=== PATIENT | female | born 1970 | race Two or more races ===

== ENCOUNTER 2018-05-20 03:39 | Emergency (ER) | payer BC ==
--- NOTE | 2018-05-20 06:13 | ER Document Report ---
ED General - General Chief Complaint: Leg Pain Stated Complaint: LEG/KNEE PAIN Time Seen by Provider: 05/20/18 06:12 Notes: 47-year-old female patient emergency department chief complaint of not feeling well. Patient has a history of lupus. States that her right leg is swollen and painful. Had a low-grade fever. Was not feeling well yesterday. Fever and chills and sweats. No significant weakness. Has a mild headache right now but not significant. Also complaining of some left lower chest wall pain and shortness of breath. Followed by credit operations processor. Currently does not have a primary care doctor. Denies any abdominal pain at this time. [employer] dictation system was used in the transcribing of this medical document. There may be contextual errors in the deliverer merchandise which are not actual representations of the patient's history of present illness, physical exam or medical treatment and decision making plans. TRAVEL OUTSIDE OF THE [place] IN LAST 30 DAYS: No - HPI Onset: Yesterday - Related Data Allergies/Adverse Reactions: No Known Allergies Allergy (Unverified 06/21/13 14:39) Past Medical History - General Information source: Patient, [facility] Records - Social History Smoking Status: Never Smoker Smoking Education Provided: No Drug Abuse: None Lives with: Family Family History: Thyroid Disfunction. denies: CAD, Hypertension Patient has suicidal ideation: No Patient has homicidal ideation: No - Past Medical History Cardiac Medical History: Denies: Hx Coronary Artery Disease, Hx Hypertension Endocrine Medical History: Denies: Hx Hyperthyroidism, Hx Hypothyroidism Renal/ Medical History: Denies: Hx Peritoneal Dialysis Musculoskeltal Medical History: Reports Hx Arthritis Past Surgical History: Reports: Hx Gynecologic Surgery, Hx Tonsillectomy - Immunizations Hx Diphtheria, Pertussis, Tetanus Vaccination: No Review of Systems - Review of Systems Constitutional: Fever, Malaise, Weakness EENT: No symptoms reported Cardiovascular: Chest pain, Palpitations, Heart racing Respiratory: denies: Cough, Hurts to breathe, Short of breath, Wheezing Gastrointestinal: denies: Abdominal pain, Diarrhea, Nausea, Vomiting Genitourinary: No symptoms reported Female Genitourinary: No symptoms reported Musculoskeletal: See HPI, Joint swelling, Leg swelling, Ankle swelling Skin: No symptoms reported Hematologic/Lymphatic: No symptoms reported Neurological/Psychological: denies: Confusion, Weakness, Numbness Physical Exam - Vital signs Vitals: Temp Pulse Resp BP Pulse Ox 99.0 F 108 H 16 101/41 L 97 05/20/18 03:45 05/20/18 03:45 05/20/18 03:45 05/20/18 03:45 05/20/18 03:45 Interpretation: Tachycardic - General General appearance: Appears well, Alert - HEENT Head: Normocephalic, Atraumatic Eyes: Normal Pupils: PERRL - Respiratory Respiratory status: No respiratory distress Chest status: Nontender Breath sounds: Normal Chest palpation: Normal - Cardiovascular Rhythm: Tachycardia Heart sounds: Normal auscultation Murmur: No Notes: There is some mild tenderness palpation when pushing on the left lower lateral and anterior chest wall. - Abdominal Inspection: Normal Distension: No distension Bowel sounds: Normal Tenderness: Nontender Organomegaly: No organomegaly - Back Back: Normal, Nontender - Extremities General upper extremity: Normal inspection, Nontender, Normal color, Normal ROM , Normal temperature General lower extremity: Other - The right lower extremity is significantly swollen as compared to left. There is some pitting edema noted to the foot and ankle. No: Alma's sign - Neurological Neuro grossly intact: Yes Cognition: Normal Orientation: AAOx4 [place] Coma Scale Eye Opening: Spontaneous Jessica Coma Scale Verbal: Oriented [place] Coma Scale Motor: Obeys Commands Jessica Coma Scale Total: 15 Speech: Normal Motor strength normal: LUE, RUE, LLE, RLE Sensory: Normal - Psychological Associated symptoms: Normal affect, Normal mood - Skin Skin Temperature: Warm Skin Moisture: Dry Skin Color: Normal Course - Re-evaluation Re-evalutation: 05/20/18 09:23 Patient's blood pressure now dropping at 86/58, white blood cell count 25,000. Lactate over 3. Adding second liter normal saline. 2 g Rocephin IV ordered. Could potentially be a source in the chest. Will add CT scan of the chest. CT head was virtually unremarkable but radiologist request MRI if concern. Obviously concern at this time for sepsis. Sepsis protocols begun. Medicine consulted for admit. Will have no clear definitive source for the sepsis. 05/20/18 09:31 At [address] time [address] chest abdomen pelvis to look for any potential sources including spinal abscess to abdominal abscess or other pathology. Consulted hospitalist at this time. Waiting for consult and admit. 05/20/18 11:29 She initially consulted for admission here. The CT scan chest abdomen pelvis results showed massive lymphadenopathy in the retroperitoneal and pelvic origins. Consulted with Dr. Negron with oncology who recommends transfer to tertiary care center where she get a rapid diagnosis and possible rapid biopsy. Apparently this is unlikely to happen here. Will consult with the patient about where she would like to go and try to transfer her. Continue IV fluids and antibiotics. Have consulted with the hospitalist as well and he agrees with this plan. 05/20/18 12:58 DR. Waller has accepted at [facility] 05/20/18 16:15 Patient was evaluated shortly prior to transfer. Patient was stable for transfer. Reconsulted with transfer center wall transfer team was present to ensure that I agreed with the transfer and the stability of transfer.. - Vital Signs Vital signs: Temp Pulse Resp BP Pulse Ox 101.1 F H 108 H 30 H 94/63 L 99 05/20/18 15:01 05/20/18 03:45 05/20/18 15:01 05/20/18 15:01 05/20/18 15:01 - Laboratory Result Diagrams: 05/20/18 06:00 05/20/18 06:00 Laboratory results interpreted by me: 05/20/18 05/20/18 05/20/18 06:00 06:00 06:00 WBC 25.8 H RBC 5.49 H Hgb 11.2 L Hct 35.2 L MCV 64 L MCH 20.3 L MCHC 31.7 L RDW 18.2 H Seg Neuts % (Manual) 88 H Band Neutrophils % 8 H Lymphocytes % (Manual) 1 L Monocytes % (Manual) 2 L Abs Neuts (Manual) 24.8 H Abs Lymphs (Manual) 0.3 L PT 15.5 H Potassium 3.3 L Est GFR (Non-Af Amer) 56 L Glucose 139 H Lactic Acid Direct Bilirubin 0.6 H Urine Protein Urine Bilirubin Urine Urobilinogen Ur Leukocyte Esterase 05/20/18 05/20/18 07:35 08:05 WBC RBC Hgb Hct MCV MCH MCHC RDW Seg Neuts % (Manual) Band Neutrophils % Lymphocytes % (Manual) Monocytes % (Manual) Abs Neuts (Manual) Abs Lymphs (Manual) PT Potassium Est GFR (Non-Af Amer) Glucose Lactic Acid 3.1 H Direct Bilirubin Urine Protein 100 H Urine Bilirubin SMALL H Urine Urobilinogen 2.0 H Ur Leukocyte Esterase SMALL H Critical Care Note - Critical Care Note Total time excluding time spent on procedures (mins): 90 Comments: Sepsis, consultation with specialists, coordination of transfer of care, hypotension, tachycardia, infection oncological emergency Discharge - Discharge Clinical Impression: Right leg swelling, Acute lymphadenitis Sepsis Qualifiers: Sepsis type: sepsis due to unspecified organism Qualified Code(s): A41.9 - Sepsis, unspecified organism Condition: Critical Disposition: [facility]
[2018-05-20 06:28] LABS: HEMATOCRIT 35.2 % (36.0-47.0); HEMOGLOBIN 11.2 g/dL (12.0-15.5); MEAN CORPUSCULAR HEMOGLOBIN 20.3 pg (27.0-33.4); MEAN CORPUSCULAR HGB CONC 31.7 g/dL (32.0-36.0); PLATELET COUNT 311 10^3/uL (150-450); RED BLOOD COUNT 5.49 10^6/uL (3.72-5.28); RED CELL DISTRIBUTION WIDTH 18.2 % (11.5-14.0); WHITE BLOOD COUNT 25.8 10^3/uL (4.0-10.5)
[2018-05-20] MEDS ORDERED: KETOROLAC TROMETHAMINE INJ/PF 30 MG/1 ML SDV IV ONE (06:31)
[2018-05-20] MEDS ORDERED: NORMAL SALINE 1000 ML 1,000 ML IV ONE ×3 (06:31→14:24)
[2018-05-20 06:36] LABS: ALANINE AMINOTRANSFERASE 23 U/L (9-52); ALBUMIN 3.5 g/dL (3.5-5.0); ALKALINE PHOSPHATASE 86 U/L (38-126); ANION GAP 15 (5-19); ASPARTATE AMINO TRANSFERASE 19 U/L (14-36); BILIRUBIN,DIRECT 0.6 mg/dL (0.0-0.4); BILIRUBIN,TOTAL 1.1 mg/dL (0.2-1.3); BLOOD UREA NITROGEN 15 mg/dL (7-20); CALCIUM 9.2 mg/dL (8.4-10.2); CARBON DIOXIDE 22 mmol/L (22-30); CHLORIDE 104 mmol/L (98-107); GLUCOSE 139 mg/dL (75-110); POTASSIUM 3.3 mmol/L (3.6-5.0); TOTAL PROTEIN 6.8 g/dL (6.3-8.2)
[2018-05-20 07:04] LABS: ABSOLUTE LYMPHOCYTES# (MANUAL) 0.3 10^3/uL (0.5-4.7); ABSOLUTE MONOCYTES # (MANUAL) 0.5 10^3/uL (0.1-1.4); ABSOLUTE NEUTROPHILS# (MANUAL) 24.8 10^3/uL (1.7-8.2); BAND NEUTROPHILS % (MANUAL) 8 % (3-5); BASOPHILS % (MANUAL) 0 % (0-2); EOSINOPHILS % (MANUAL) 1 % (0-6); LYMPHOCYTES % (MANUAL) 1 % (13-45); MONOCYTES % (MANUAL) 2 % (3-13); SEGMENTED NEUTROPHILS % (MAN) 88 % (42-78); TOTAL CELLS COUNTED 100
--- NOTE | 2018-05-20 07:05 | RADIOLOGY REPORT (SQ) ---
EXAM DESCRIPTION: XR CHEST 1 VIEW COMPLETED DATE/TME: 05/20/2018 06:30 CLINICAL HISTORY: 47 years Female, chest pain and sob COMPARISON: None. NUMBER OF VIEWS/TECHNIQUE: 1/AP FINDINGS: Adequate lung volume, mild interstitial markings, normal cardiac silhouette, and intact bony thorax. IMPRESSION: Mild interstitial markings. Differential diagnosis includes pulmonary edema, atypical pneumonitis, and chronic interstitial lung disease.
[2018-05-20 07:06] LABS: ANISOCYTOSIS 2+; HYPOCHROMASIA 1+; OVALOCYTES 1+; PLATELET COMMENT ADEQUATE; TOXIC VACUOLATION PRESENT
[2018-05-20 07:07] LABS: MEAN CORPUSCULAR VOLUME 64 fl (80-97)
[2018-05-20 07:26] LABS: INTERNATIONAL RATION (INR) 1.17; PROTHROMBIN TIME 15.5 SEC (11.4-15.4)
[2018-05-20 07:27] LABS: PARTIAL THROMBOPLASTIN TIME 28.7 SEC (23.5-35.8)
[2018-05-20 07:55] LABS: APPEARANCE,URINE CLOUDY; BILIRUBIN,URINE SMALL (NEGATIVE); COLOR,URINE AMBER; GLUCOSE, URINE NEGATIVE (NEGATIVE); KETONES,URINE NEGATIVE (NEGATIVE); LEUKOCYTE ESTERASE,URINE SMALL (NEGATIVE); NITRITE,URINE NEGATIVE (NEGATIVE); PROTEIN,URINE 100 mg/dL (NEGATIVE); URINE SPECIFIC GRAVITY 1.029
--- NOTE | 2018-05-20 08:30 | RADIOLOGY REPORT (SQ) ---
EXAM DESCRIPTION: CT HEAD WITHOUT COMPLETED DATE/TIME: 05/20/2018 8:05 am REASON FOR STUDY: History of lupus with headache and right leg pain COMPARISON: 06/30/2011 TECHNIQUE: Axial images acquired through the brain without intravenous contrast. Images reviewed wi th bone, brain and subdural windows. Additional sagittal and coronal reconstructions were generated. Images stored on PACS. All CT scanners at this facility use dose modulation, iterative reconstruction, and/or weight based d osing when appropriate to reduce radiation dose to as low as reasonably achievable (ALARA). [facility]: Dose Right [facility]: CareDose [facility]: Dose Right [facility]: Teradose 4D [facility]: [employer] RADIATION DOSE: CT Rad equipment meets quality standard of care and radiation dose reduction techniq ues were employed. CTDIvol: 53.2 mGy. DLP: 1097 mGy-cm. mGy. LIMITATIONS: None. FINDINGS: VENTRICLES: Normal size and contour. CEREBRUM: No masses. No hemorrhage. No midline shift. No evidence for acute infarction. Normal gra y/white matter differentiation. No areas of low density in the white matter. CEREBELLUM: No masses. No hemorrhage. No alteration of density. No evidence for acute infarction. EXTRAAXIAL SPACES: No fluid collections. No masses. ORBITS AND GLOBE: No intra- or extraconal masses. Normal contour of globe without masses. CALVARIUM: No fracture. PARANASAL SINUSES: No fluid or mucosal thickening. SOFT TISSUES: No mass or hematoma. OTHER: No other significant finding. IMPRESSION: NORMAL BRAIN CT WITHOUT CONTRAST. EVIDENCE OF ACUTE STROKE: NO. COMMENT: Quality ID # 436: Final reports with documentation of one or more dose reduction techniques (e.g., Automated exposure control, adjustment of the mA and/or kV according to patient size, use of iterative reconstruction technique) TECHNICAL DOCUMENTATION: JOB ID: [id number] [employer] All Rights Reserved Reading location - IP/workstation name: [email or web address]
--- NOTE | 2018-05-20 08:38 | EKG REPORT ---
SEVERITY:- OTHERWISE NORMAL ECG - SINUS TACHYCARDIA : Confirmed by: Kenyon Foote 20-May-2018 08:37:40
[2018-05-20] MEDS ORDERED: CEFTRIAXONE 2 GM/D5W RTU 2 GM/50 ML RTUPB IV ONE (08:53)
[2018-05-20 10:50] LABS: PATH REVIEW PATHOLOGIST REVIEWED
--- NOTE | 2018-05-20 11:04 | RADIOLOGY REPORT (SQ) ---
EXAM DESCRIPTION: CTA CHEST; CT ABD/PELVIS WITH IV ONLY COMPLETED DATE/TIME: 05/20/2018 10:34 am REASON FOR STUDY: CP, SOB; SEPSIS,BACK PAIN COMPARISON: CT brain 05/20/2018, AP chest 05/20/2018 CONTRAST TYPE AND DOSE: contrast/concentration: Isovue 370.00 mg/ml; Total Contrast Delivered: 82.0 ml; Total Saline Delivered: 90.0 ml RENAL FUNCTION: Creatinine 1.0 TECHNIQUE: CT angio of the chest performed using helical scanning technique with dynamic intravenous contrast injection. Images reviewed with lung, soft tissue and bone windows. Maximum intensity pro jected reconstruction through the pulmonary arteries and thoracic aorta review. Reconstructed banks l and sagittal MPR images reviewed. All images stored on PACS. CT scan of the abdomen and pelvis performed with intravenous and without oral contrastusing helical s gama technique with dynamic intravenous contrast injection. Images reviewed with lung, soft tissu e and bone windows. Reconstructed coronal and sagittal MPR images reviewed. Delayed images for eval uation of the urinary system also acquired and evaluated. All images stored on PACS. All CT scanners at this facility use dose modulation, iterative reconstruction, and/or weight based d osing when appropriate to reduce radiation dose to as low as reasonably achievable (ALARA). [facility]: Dose Right [facility]: CareDose [facility]: Dose Right [facility]: Teradose 4D [facility]: [employer] RADIATION DOSE: CT Rad equipment meets quality standard of care and radiation dose reduction techniq ues were employed. CTDIvol: 29.4 - 41.3 mGy. DLP: 5039 mGy-cm. . LIMITATIONS: None. FINDINGS: CHEST: LUNGS AND PLEURA: Benign noncalcified granulomas in the right middle lobe image 52, right lower lobe image 65. No acute infiltrates. No pleural effusions. No pneumothorax. Airways are patent. HILAR AND MEDIASTINAL STRUCTURES: No identified masses or abnormal nodes. Small hiatal hernia HEART AND VASCULAR STRUCTURES: No CT angio evidence of acute pulmonary emboli to the main, right or l eft lobar, or proximal segmental pulmonary arteries. No CT angio evidence of thoracic aortic dissect ion. HARDWARE: None. THYROID AND OTHER SOFT TISSUES: No masses. No adenopathy. BONES: No significant finding. OTHER: No other significant finding. ABDOMEN AND PELVIS: LIVER: Normal size. No masses. No dilated ducts. SPLEEN: Normal size. No focal lesions. PANCREAS: No masses. No significant calcifications. No adjacent inflammation or peripancreatic fluid collections. Pancreatic duct not dilated. GALLBLADDER: Multiple stones in the gallbladder without gallbladder wall thickening or pericholecysti c fluid ADRENAL GLANDS: No significant masses or asymmetry. RIGHT KIDNEY AND URETER: No solid masses. Less than 5 mm cyst right lower pole kidney coronal image 7. No significant calcification. No hydronephrosis or hydroureter. LEFT KIDNEY AND URETER: No solid masses. Tiny 2 to 3 mm left upper pole and left lower pole intraren al nonobstructive stones best shown on coronal images 57 and 58. No hydronephrosis or hydroureter. AORTA AND VESSELS: No aneurysm. No dissection. Renal arteries, SMA, celiac without stenosis. No angie s evidence of clot in the pelvic veins or inferior vena cava RETROPERITONEUM: No retroperitoneal hemorrhage or masses. There is retroperitoneal/ pelvic adenopathy as follows: 1.6 x 0.9 cm retroperitoneal lymph node immediately ventral to the iliac bifurcation axial image 180. 3 x 1.3 cm right pericaval lymph node axial image 170. 2.5 x 1.5 cm lymph node adjacent to the proximal right common iliac artery and vein axial image 177 1.5 x 1.5 cm lymph node along the right external iliac artery axial image 183 4 x 2 cm lymph node right external iliac region axial image 198 3 x 1.2 cm right inguinal lymph node image 207 2.2 x 1.6 cm right common femoral region lymph node axial image 215 3.2 x 2 cm left obturator lymph node axial image 191 2.8 x 1.2 cm left external iliac lymph node image 193 BOWEL AND PERITONEAL CAVITY: No masses or inflammatory changes. No free fluid or peritoneal masses. APPENDIX: Normal. ABDOMINAL WALL: No masses. No hernias. PELVIS: No mass or free fluid. Normal bladder. Pelvic adenopathy. Normal size female pelvic organs with multiple small calcified uterine fibroids BONES: No significant or acute findings. OTHER: No other significant finding. IMPRESSION: No CT angio evidence of acute pulmonary emboli or thoracic aortic dissection. No acute infiltrates. Adenopathy in the pelvis. Gallstones in the gallbladder without gallbladder wall thickening or peric holecystic fluid. TECHNICAL DOCUMENTATION: JOB ID: [id number] Quality ID # 436: Final reports with documentation of one or more dose reduction techniques (e.g., Au tomated exposure control, adjustment of the mA and/or kV according to patient size, use of iterative reconstruction technique) 2010 [employer]- All Rights Reserved Reading location - IP/workstation name: [email or web address]
[2018-05-20] MEDS ORDERED: CIPROFLOXACIN 400 MG/D5W RTU 400 MG/200 ML RTUPB IV SCH ×2 (12:00→22:00)
[2018-05-20] MEDS ORDERED: CIPROFLOXACIN 400 MG/D5W RTU 400 MG/200 ML RTUPB IV ONE (12:00)
[2018-05-20] MEDS ORDERED: ACETAMINOPHEN 325 MG TABLET PO ONE (14:23)
[2018-05-20 15:12] VITALS: BP 94/63
--- NOTE | 2018-05-20 15:17 | RADIOLOGY REPORT (SQ) ---
EXAM DESCRIPTION: CHEST SINGLE VIEW COMPLETED DATE/TIME: 05/20/2018 2:53 pm REASON FOR STUDY: worsening sob COMPARISON: CT 05/20/2018 chest x-ray 05/20/2018 EXAM PARAMETERS: NUMBER OF VIEWS: One view. TECHNIQUE: Single frontal radiographic view of the chest acquired. RADIATION DOSE: NA LIMITATIONS: None. FINDINGS: LUNGS AND PLEURA: Mild pulmonary vascular prominence. Mild interstitial prominence. No i nfiltrate or effusion. MEDIASTINUM AND HILAR STRUCTURES: No masses. Contour normal. HEART AND VASCULAR STRUCTURES: Borderline heart size. No failure. BONES: No acute findings. HARDWARE: None in the chest. OTHER: No other significant finding. IMPRESSION: Mild pulmonary vascular prominence with borderline heart size but no rashaun failure. TECHNICAL DOCUMENTATION: JOB ID: [id number] [employer]- All Rights Reserved Reading location - IP/workstation name: [email or web address]
--- NOTE | 2018-05-21 10:03 | RADIOLOGY REPORT (SQ) ---
EXAM DESCRIPTION: VENOUS UNILATERAL LOWER COMPLETED DATE/TIME: 05/20/2018 9:19 am REASON FOR STUDY: right leg swelling and pain COMPARISON: None. TECHNIQUE: Dynamic and static arreola scale and color images acquired of the right leg venous system. S elected spectral images acquired with additional compression and augmentation maneuvers. The contrala teral common femoral vein and saphenofemoral junction were also imaged. Images stored on PACS. LIMITATIONS: None. FINDINGS: RIGHT COMMON FEMORAL: Normal phasicity, compression and augmentation. No visualized echogenic material on g ray scale. No defects on color images. FEMORAL: The right superficial femoral vein is left occluded with hypoechoic acute clot this report w as called to Dr. Groves in the emergency room 05/20/2018, 0923 hours. Findings were discussed with Dr. Groves by myself, 0940 hours 05/21/2018. POPLITEAL: Normal compression, augmentation. No visualized echogenic material on arreola scale. No defec ts on color images. CALF VESSELS: Normal compression, augmentation. No visualized echogenic material on arreola scale. No de fects on color images. GSV and SSV: Normal compression, augmentation. No visualized echogenic material on arreola scale. No def ects on color images. ANY DEEP VENOUS INSUFFICIENCY: Not evaluated. ANY EVIDENCE OF POPLITEAL CYST: No. OTHER: No other significant finding. LEFT COMMON FEMORAL VEIN AND SAPHENOFEMORAL JUNCTION: Normal phasicity, compression and augmentation. No visualized echogenic material on arreola scale. No de fects on color images. IMPRESSION: Right superficial femoral vein occluded by hypoechoic acute clot. TECHNICAL DOCUMENTATION: JOB ID: [id number] [employer]- All Rights Reserved Reading location - IP/workstation name: [email or web address]
== END 2018-05-20 15:31 | disposition short-term general hospital (02) ==
LOC: ER 03:39 → EH 10:32 → UNDOADMIN 10:32 → UNDODISIN 15:30
DX: A41.9 Sepsis, unspecified organism (principal); L04.9 Acute lymphadenitis, unspecified; R53.81 Other malaise; R50.9 Fever, unspecified; R51 Headache; M79.604 Pain in right leg; M79.89 Other specified soft tissue disorders
CPT/HCPCS: 93005; 99291; 99292; 96361; 96365; 96367; 36415; 87040; 85025; 85610; 85730; 80053; 81001; 84484; 83605; 93971; 71045; 70450; 71275; 74177; 93010; J1885; J7030; J0744; J0696

== ENCOUNTER → 2019-05-29 | Outpatient (CLI) | payer BC ==
[2019-05-29 10:36] LABS: ABSOLUTE EOSINOPHILS # (AUTO) 0.2 10^3/uL (0.0-0.6); ABSOLUTE LYMPHOCYTES (AUTO) 1.1 10^3/uL (0.5-4.7); ABSOLUTE MONOCYTES (AUTO) 0.3 10^3/uL (0.1-1.4); BASOPHILS % (AUTO) 0.8 % (0-2); EOSINOPHILS % (AUTO) 2.9 % (0-6); HEMATOCRIT 36.4 % (36.0-47.0); HEMOGLOBIN 11.6 g/dL (12.0-15.5); LYMPHOCYTES % (AUTO) 19.7 % (13-45); MEAN CORPUSCULAR HGB CONC 31.9 g/dL (32.0-36.0); MEAN CORPUSCULAR VOLUME 63 fl (80-97); MONOCYTES % (AUTO) 5.5 % (3-13); PLATELET COUNT 301 10^3/uL (150-450); RED CELL DISTRIBUTION WIDTH 18.8 % (11.5-14.0); SEGMENTED NEUTROPHILS % (AUTO) 71.1 % (42-78); TOTAL CELLS COUNTED % (AUTO) 100 %; WHITE BLOOD COUNT 5.6 10^3/uL (4.0-10.5)
[2019-05-29 11:05] LABS: ANISOCYTOSIS 2+
[2019-05-29 11:06] LABS: PLATELET COMMENT ADEQUATE
[2019-05-29 11:07] LABS: OVALOCYTES 1+; POIKILOCYTOSIS 1+
[2019-05-29 11:10] LABS: ALANINE AMINOTRANSFERASE 22 U/L (9-52); ALBUMIN 3.9 g/dL (3.5-5.0); ALKALINE PHOSPHATASE 99 U/L (38-126); ANION GAP 10 (5-19); ASPARTATE AMINO TRANSFERASE 26 U/L (14-36); BILIRUBIN,DIRECT 0.3 mg/dL (0.0-0.4); BILIRUBIN,TOTAL 0.5 mg/dL (0.2-1.3); BLOOD UREA NITROGEN 13 mg/dL (7-20); CALCIUM 9.4 mg/dL (8.4-10.2); CARBON DIOXIDE 22 mmol/L (22-30); CHLORIDE 109 mmol/L (98-107); CHOLESTEROL 126.59 mg/dL (0-200); GLUCOSE 95 mg/dL (75-110); POTASSIUM 4.1 mmol/L (3.6-5.0); SODIUM 141.1 mmol/L (137-145); TOTAL PROTEIN 7.7 g/dL (6.3-8.2); TRIGLYCERIDES 47 mg/dL (<150)
[2019-05-29 11:21] LABS: DIRECT LDL 76 mg/dL (<100)
== END ==
LOC: OD 09:55
PROVIDERS: ATTEND Internal Medicine
DX: R10.0 Acute abdomen (principal); D64.9 Anemia, unspecified; E03.9 Hypothyroidism, unspecified; E78.5 Hyperlipidemia, unspecified
CPT/HCPCS: 36415; 80053; 80061; 84443; 85025

== ENCOUNTER → 2020-01-15 | Outpatient (CLI) | payer BC ==
--- NOTE | 2020-01-19 13:51 | WOMENS IMAGING REPORT ---
EXAM DESCRIPTION: 3D SCREENING MAMMO BILAT COMPLETED DATE/TIME: 01/15/2020 9:34 am REASON FOR STUDY: ROUTINE SCREENING MAMMOGRAM Z12.31 Z12.31 ENCNTR SCREEN MAMMOGRAM FOR MALIGNANT N EOPLASM OF CAILIN COMPARISON: None. EXAM PARAMETERS: Views: Standard craniocaudal and mediolateral oblique views of each breast recorded using digital acquisition and breast tomosynthesis. Read with the assistance of CAD. .[facility] - [employer] Unit Director Version 9.2 LIMITATIONS: None. FINDINGS: No suspicious masses, suspicious calcifications or architectural distortion. No areas of c oncern. IMPRESSION: NEGATIVE MAMMOGRAM. BIRADS 1. BREAST DENSITY: b. There are scattered areas of fibroglandular density. BIRAD: ASSESSMENT: 1 NEGATIVE RECOMMENDATION: ROUTINE SCREENING COMMENT: The patient has been notified of the results by letter per MQSA requirements. Additional no tification policies are in place for contacting patient with suspicious or incomplete findings. Quality ID #[id number]: The [employer] recommends an annual screening mammogram for women aged 40 years or over. This facility utilizes a reminder system to ensure that all patients receive reminder letters, and/or direct phone calls for appointments. This includes reminders for routine scr eening mammograms, diagnostic mammograms, or other Breast Imaging Interventions when appropriate. Th is patient will be placed in the appropriate reminder system. TECHNICAL DOCUMENTATION: FINDING NUMBER: (1) ASSESSMENT: (1) JOB ID: [id number] 2010 [employer]- All Rights Reserved Reading location - IP/workstation name: [email or web address]
== END ==
LOC: WI 10:15
PROVIDERS: ATTEND Family Medicine
DX: Z12.31 Encounter for screening mammogram for malignant neoplasm of breast (principal)
CPT/HCPCS: 77063; 77067

== ENCOUNTER → 2020-09-05 | Outpatient (CLI) | payer BC ==
[2020-09-05 10:44] LABS: HEMATOCRIT 34.1 % (36.0-47.0); HEMOGLOBIN 11.1 g/dL (12.0-15.5); MEAN CORPUSCULAR HEMOGLOBIN 19.4 pg (27.0-33.4); MEAN CORPUSCULAR HGB CONC 32.5 g/dL (32.0-36.0); PLATELET COUNT 294 10^3/uL (150-450); RED BLOOD COUNT 5.71 10^6/uL (3.72-5.28); RED CELL DISTRIBUTION WIDTH 19.5 % (11.5-14.0); WHITE BLOOD COUNT 5.9 10^3/uL (4.0-10.5)
[2020-09-05 11:05] LABS: ALBUMIN 3.9 g/dL (3.5-5.0); ALKALINE PHOSPHATASE 112 U/L (38-126); ANION GAP 13 (5-19); ASPARTATE AMINO TRANSFERASE 23 U/L (14-36); BILIRUBIN,DIRECT 0.3 mg/dL (0.0-0.4); BILIRUBIN,TOTAL 0.5 mg/dL (0.2-1.3); BLOOD UREA NITROGEN 10 mg/dL (7-20); CALCIUM 9.3 mg/dL (8.4-10.2); CARBON DIOXIDE 22 mmol/L (22-30); CHLORIDE 106 mmol/L (98-107); CHOLESTEROL 135.15 mg/dL (0-200); GLUCOSE 105 mg/dL (75-110); IRON(TIBC) 39.2 ug/dL (37-170); TOTAL PROTEIN 7.7 g/dL (6.3-8.2); TRIGLYCERIDES 62 mg/dL (<150)
[2020-09-05 11:16] LABS: DIRECT LDL 75 mg/dL (<100)
[2020-09-05 11:41] LABS: FERRITIN 8.53 ng/mL (11.1-264.0)
[2020-09-05 12:05] LABS: ABSOLUTE LYMPHOCYTES# (MANUAL) 1.1 10^3/uL (0.5-4.7); ABSOLUTE MONOCYTES # (MANUAL) 0.4 10^3/uL (0.1-1.4); BASOPHILS % (MANUAL) 0 % (0-2); EOSINOPHILS % (MANUAL) 3 % (0-6); LYMPHOCYTES % (MANUAL) 18 % (13-45); MONOCYTES % (MANUAL) 7 % (3-13); SEGMENTED NEUTROPHILS % (MAN) 72 % (42-78); TOTAL CELLS COUNTED 100
[2020-09-05 12:09] LABS: ANISOCYTOSIS 2+; OVALOCYTES 1+; PLATELET COMMENT ADEQUATE; POIKILOCYTOSIS 1+
[2020-09-05 12:11] LABS: MEAN CORPUSCULAR VOLUME 60 fl (80-97); PLATELET LARGE PRESENT
[2020-09-06 14:18] LABS: PATH REVIEW PATHOLOGIST REVIEWED
== END ==
LOC: OD 09:40
PROVIDERS: ATTEND Family Medicine
DX: E55.9 Vitamin D deficiency, unspecified (principal); D50.9 Iron deficiency anemia, unspecified; Z13.1 Encounter for screening for diabetes mellitus; Z13.220 Encounter for screening for lipoid disorders
CPT/HCPCS: 36415; 80053; 80061; 82306; 82728; 83540; 83550; 85025